=== PATIENT | female | born 1960 | race Caucasian/White ===

== ENCOUNTER 2018-05-14 11:41 | Day surgery (SDC) | payer OTHER ==
[~2018-05-14 11:41] MED LIST: AVAPRO150 MG; AZULFIDINE500 M1; BUSPIRONE HCL15 MG; CARDIZEM30 MG; ELABIL PO; IMURAN50 MG; NEURONTIN300 MG; NEURONTIN300 MG PO; SINCALIDE; SINGULAIR 10MG10 MG; SYNTHROID125 MCG; TOPAMAX PO; ZOCOR20 MG
== END 2018-05-14 20:40 | disposition home or self-care (01) ==
LOC: CIR.AMB 11:41
DX: N95.0 Postmenopausal bleeding (principal)